=== PATIENT | female | born 1985 | race Hispanic/Latino ===

== ENCOUNTER 2017-03-22 05:50 | Emergency (ER) | payer MEDICAID, OTHER | END 2017-03-22 06:35 | disposition home or self-care (01) | LOC: EDH 05:50 | DX: T19.2XXA Foreign body in vulva and vagina, initial encounter (principal); E03.9 Hypothyroidism, unspecified; X58.XXXA Exposure to other specified factors, initial encounter; Y93.89 Activity, other specified; Y92.89 Other specified places as the place of occurrence of the external cause; Y99.8 Other external cause status | CPT/HCPCS: 99281 ==